=== PATIENT | female | born 1985 | race Caucasian/White ===

== ENCOUNTER 2024-10-18 11:25 | Outpatient (CLI) | payer BC, SELFPAY ==
[2024-10-18 12:53] LABS: Bacterial Vaginosis* Negative (Negative); Candida glab/krus NOT DETECTED (No Detected)
== END 2024-10-18 11:26 | disposition home or self-care (01) ==
LOC: NFLDREF 11:25
PROVIDERS: Visit Provider Registered Nurse
DX: N89.8 Other specified noninflammatory disorders of vagina (principal); Z13.6 Encounter for screening for cardiovascular disorders
CPT/HCPCS: 80061; 81513; 87481; 87661

== ENCOUNTER 2024-10-27 08:48 | Outpatient (CLI) | payer BC, SELFPAY ==
--- NOTE | 2024-10-27 10:04 | P.GYNPRC_ITS ---
Procedure Note Time Seen by Provider: 09:40 Date of procedure: 10/27/24 Will [facility] bill your pro fee for this procedure?: Yes Pre-op diagnosis: Unsuccessful IUD placement in clinic. Post-op diagnosis: Same. Procedure: IUD placement under ultrasound guidance. Complications: None. Surgeon: Francine Castro MD Condition: stable Disposition: same day Findings: Midposition, slightly retroflexed uterus Procedure Description: Procedure note: Mirena IUD Insertion under ultrasound guidance We discussed risks of IUD insertion, including bleeding, infection, uterine perforation, expulsion, and the rare risk of with IUD in place. We discussed likely changes in menstrual bleeding patterns. Consent form reviewed with and signed by patient. Urine test is negative today. Ultrasound examination was performed by the technologist using a transabdominal transducer, and uterine configuration identified. Speculum inserted. Cervix visualized and cleansed with three Betadine-soaked swabs. Tenaculum was attached to the anterior lip of the cervix. Uterus sounds to 7 cm. The use of an os finder or cervical dilators was needed: No. The IUD was loaded into the insertion tube, inserted to the sounded depth, and the IUD is deployed. Insertion tube was removed. Ultrasound was used during the procedure and confirmed placement of both os binder, IUD introducer, and IUD. Strings are trimmed to 3 cm. There were no complications with insertion. Patient tolerated procedure well.
--- NOTE | 2024-10-27 13:11 | PC.PHA ---
ADOLPH CHARGED. Demetrius [id number] Lot:[id number] Exp:
== END 2024-10-27 08:49 | disposition home or self-care (01) ==
LOC: US 08:48
PROVIDERS: Visit Provider Obstetrics & Gynecology
DX: Z30.430 Encounter for insertion of intrauterine contraceptive device (principal)
CPT/HCPCS: 58300; 76942; J7298

== ENCOUNTER 2025-02-21 09:02 | Outpatient (CLI) | payer BC, SELFPAY ==
--- NOTE | 2025-02-21 09:15 | CRLHL7_ITS ---
For Patients: As a result of the Century Cures Act, medical imaging exams and procedure reports are released immediately into your electronic medical record. You may view this report before your referring provider. If you have questions, please contact your health care provider. INDICATION: BILATERAL SCREENING MAMMOGRA, ASYMPTOMATIC 39 Y/O FEMALE COMPARISON: NONE BASELINE TECHNIQUE: Digital mammogram in CC and MLO projections including computer-aided detection (CAD) and tomosynthesis. BREAST COMPOSITION: There are scattered areas of fibroglandular density. FINDINGS: No suspicious findings. ASSESSMENT: BI-RADS 1 Negative RECOMMENDATION: Annual screening mammogram. A lay language report of this examination will be provided to the patient. Dictated by: Alba Otoole MD @ 02/22/2025 07:05:23 (Electronically Signed)
== END 2025-02-21 09:03 | disposition home or self-care (01) ==
LOC: MAMMO 09:03
PROVIDERS: Visit Provider Registered Nurse
DX: Z12.31 Encounter for screening mammogram for malignant neoplasm of breast (principal)
CPT/HCPCS: 77063; 77067